=== PATIENT | female | born 1990 | race Caucasian/White ===

== ENCOUNTER 2017-06-30 03:46 | Emergency (ER) | payer MEDICARE | END 2017-06-30 05:25 | disposition home or self-care (01) | LOC: ER1 03:46 | DX: S46.911A Strain of unspecified muscle, fascia and tendon at shoulder and upper arm level, right arm, initial encounter (principal); W19.XXXA Unspecified fall, initial encounter; Y92.009 Unspecified place in unspecified non-institutional (private) residence as the place of occurrence of the external cause | CPT/HCPCS: 73030; 99283 ==

== ENCOUNTER 2020-11-26 10:34 | Emergency (ER) | payer OTHER ==
[~2020-11-26 10:34] MED LIST: AMITIZA24 MCG PO; ASMANEX220 MC1 INH; ATORVASTATIN CA40 MG PO; AUGMENTIN 875-1 EACH PO; BASAGLAR K100 UNIT/1 SC; BENTYL 10MG CAP10 MG PO; BENTYL 20MG TAB20 MG PO; BUDESONIDE EC3 MG PO; CEFUROXIME250 MG PO; CELEBREX100 MG PO; CLARITIN10 M2 PO; COZAAR 25MG TAB25 MG PO; CREON DR 24,001 EACH PO; CYMBALTA30 MG PO; DILTIAZEM ER120 MG PO; ELAVIL 10 MG TA10 MG PO; ELMIRON100 MG PO; FLAGYL500 MG PO; GABAPENTIN800 MG PO; GINGER ROOT550 MG PO; GLIMEPIRIDE4 MG PO; GLUCOPHAGE1000 MG PO; HYDROCHLOROTHIA25 MG PO; IBUPROFEN600 MG PO; INVOKANA300 MG PO; IPRAT-ALBUT 0.5-3 ML INH; ISORDIL TAB 3030 MG PO; JARDIANCE10 MG PO; KEFLEX500 MG PO; LASIX TAB 20 MG20 MG PO; LIORESAL TAB 1010 MG PO; LOSARTAN POTASS25 MG PO; MACROBID 100 M100 MG PO; MAGNESIUM400 MG PO; METFORMIN HCL500 M2 PO; METHOCARBAMOL750 MG PO; METOPROLOL SUCC25 MG PO; NEURONTIN300 MG PO; NORCO 5-325 TA1 EACH PO; PAMELOR 25 MG C25 MG PO; PAXIL10 MG PO; PHENERGAN 12.12.5 M1 PO; PHENERGAN 25 MG25 M1 PO; POTASSIUM CHLO10 MEQ PO; POTASSIUM CHLO20 ME2 PO; PRILOSEC OTC20 MG PO; PROTONIX20 MG PO; PROTONIX40 MG PO; PULMICORT1 MG/2 ML INH; REMERON15 MG PO; ROBAXIN 750 MG750 MG PO; SINGULAIR10 MG PO; TOPROL XL50 MG PO; TORADOL 10 MG T10 MG PO; TRULICITY0.75 MG/0. SQ; VANCOMYCIN HCL125 MG PO; VANCOMYCIN HCL250 MG PO; VENTOLIN HFA 66.7 GM INH; VICTOZA 1818 MG/3 ML SQ; VITAMIN D250000 UNIT PO; ZITHROMAX250 MG PO; ZOFRAN 4 MG TAB4 MG PO; ZOFRAN4 MG PO
[2020-11-26 11:39] LABS: HEMOGLOBIN 11.3 gm/dl (12.3-15.3); RED BLOOD COUNT 5.35 M/UL (4.00-5.10); WHITE BLOOD COUNT 9.1 K/UL (4.5-11.0)
[2020-11-26 11:55] LABS: BUN/CREATININE RATIO 10 (0-10)
== END 2020-11-26 16:52 | disposition home or self-care (01) ==
LOC: ER1 10:34
PROVIDERS: Family Medicine
DX: F41.9 Anxiety disorder, unspecified (principal); E87.2 Acidosis; N89.8 Other specified noninflammatory disorders of vagina; G89.29 Other chronic pain; E11.65 Type 2 diabetes mellitus with hyperglycemia; R00.0 Tachycardia, unspecified
CPT/HCPCS: 36415; 80053; 81001; 83605; 83690; 85025; 93005; 96374; 96375; 99284; J1885; J2270; J2405; Q9967